=== PATIENT | male | born 1975 | race Caucasian/White ===

== ENCOUNTER 2017-11-01 09:42 | Emergency (ER) | payer SELFPAY ==
[~2017-11-01] VITALS: Ht 167.6 cm; Wt 75.0 kg
[2017-11-01 09:45] VITALS: BP 136/93; PULSE 76; TEMP 97.8
== END 2017-11-01 12:00 | disposition home or self-care (01) ==
LOC: COL.ER 09:42
DX: S61.215A Laceration without foreign body of left ring finger without damage to nail, initial encounter (principal); S67.195A Crushing injury of left ring finger, initial encounter; S67.193A Crushing injury of left middle finger, initial encounter; S67.191A Crushing injury of left index finger, initial encounter; S67.197A Crushing injury of left little finger, initial encounter; W23.0XXA Caught, crushed, jammed, or pinched between moving objects, initial encounter

== ENCOUNTER 2023-02-16 20:23 | Emergency (ER) | payer BC ==
[~2023-02-16] VITALS: Ht 170.2 cm; Wt 75.0 kg
[2023-02-16 20:28] VITALS: TEMP 97.4
[2023-02-16] MEDS ORDERED: SYNTHROID0.075 MG/T PO (20:35)
[2023-02-16] MEDS ORDERED: PERCOCET 325 MG1 TA2 PO (21:12)
[2023-02-16 21:15] VITALS: BP 140/86; PULSE 71
== END 2023-02-16 21:20 | disposition home or self-care (01) ==
LOC: COL.ER 20:23
DX: K08.89 Other specified disorders of teeth and supporting structures (principal); Z28.310 Unvaccinated for COVID-19